=== PATIENT | female | born 1980 | race Hispanic/Latino ===

== ENCOUNTER → 2023-02-17 | Outpatient (CLI) | payer OTHER ==
[~2023-02-17] MED LIST: LIDOCAINE HCL 1% LOCAL INJ 20 ML VIAL ONE
[2023-02-17 10:13] LABS: BASOPHILS # (AUTO) 0.1 (0.0-0.1); BASOPHILS % 0.7 % (0.0-1.0); EOSINOPHILS # (AUTO) 0.1 (0.0-0.4); EOSINOPHILS % 1.6 % (0.0-6.0); HEMATOCRIT 39.4 % (34.2-44.1); HEMOGLOBIN 12.6 g/dL (12.0-16.0); LYMPHOCYTES # (AUTO) 2.4 (1.0-3.2); LYMPHOCYTES % 34.5 % (18.0-39.1); MEAN CORPUSCULAR HEMOGLOBIN 29.9 pg (28-32); MEAN CORPUSCULAR VOLUME 93.4 fL (81-99); MONOCYTES # (AUTO) 0.4 (0.2-0.8); MONOCYTES % 6.1 % (4.4-11.3); NEUTROPHILS # (AUTO) 3.8 (2.1-6.9); NEUTROPHILS % 55.4 % (38.7-80.0); PLATELET COUNT 321 x10e3/uL (140-360); RED BLOOD COUNT 4.22 x10e6/uL (3.6-5.1)
[2023-02-17 10:18] LABS: INR 0.89; PROTHROMBIN TIME 12.5 seconds (11.9-14.5)
[2023-02-17 10:20] LABS: PARTIAL THROMBOPLASTIN TIME 29.9 seconds (23.8-35.5)
[2023-02-17 12:35] LABS: APPEARANCE,CSF CLEAR (CLEAR); COLOR,CSF COLORLESS (COLORLESS); TUBE NUMBER 3
[2023-02-17 12:41] LABS: WHITE BLOOD CELL,CSF 1 cells/uL (0-5)
== END ==
LOC: DX 09:29
PROVIDERS: ATTEND Ophthalmology
DX: H47.11 Papilledema associated with increased intracranial pressure (principal)
CPT/HCPCS: 36415; 62328; 81025; 82945; 84157; 85025; 85610; 85730; 86592; 89051; J2001